=== PATIENT | male | born 1995 | race Caucasian/White ===

== ENCOUNTER 2019-01-10 07:02 | Observation (INO) | payer BC ==
--- NOTE | 2019-01-10 07:14 | EDPHY ---
H & P Stated Complaint: L flank pain Time Seen by Provider: 01/10/19 07:14 - Personal History Current Tetanus/Diphtheria Vaccine: Yes - Medical/Surgical History Hx Asthma: No Hx Chronic Respiratory Disease: No Hx Diabetes: No Hx Cardiac Disease: No Hx Renal Disease: No Hx Cirrhosis: No Hx Alcoholism: No Other PMH: kidney stones - Social History Smoking Status: Never smoked Constitutional: Initial Vital Signs Temperature (C) 36.6 C 01/10/19 07:05 Heart Rate 71 01/10/19 07:05 Respiratory Rate 18 01/10/19 07:05 Blood Pressure 165/91 H 01/10/19 07:05 O2 Sat (%) 96 01/10/19 07:05 O2 Delivery Mode Room Air Allergies/Adverse Reactions: No Known Allergies Allergy (Unverified 01/10/19 07:08) Home Medications: Medication Instructions Recorded NK [No Known Home Meds] 01/10/19 Medical Decision Making - Diagnostics Imaging Results: Imaging Impressions Abdomen CT 01/10/19 08:01 Impression: 1. Acute appendicitis with periappendiceal inflammatory changes and trace peritoneal free fluid. This appendix may be perforated. No abscess. 2. Left-sided nephrolithiasis, largest stone measuring 9 mm in the left renal hilum, without features of obstructive uropathy. Results called to Dr. Feliciano oTbin at 8:30 AM. Imaging: Discussed imaging studies w/ manager call Radiologist, I viewed and interpreted images myself ED Course/Re-evaluation: CHIEF COMPLAINT: Left flank pain HISTORY OF PRESENT ILLNESS: The patient is a 23 y/o male with a history of kidney stones complaining of abdominal pain primarily in his left flank onset this morning. This pain feels like prior episodes of hydronephrosis. Prior to arriving to the ED, he ate a marijuana gummy and is now "feeling much better". He has been unable to urinate since the onset of pain. No fever, headache, body aches, lightheadedness, chest pain, heart palpitations, shortness of breath, cough, urinary or bowel complaints, numbness, paresthesias. REVIEW OF SYSTEMS: A 10 point review of systems was performed and is negative with the exception of the elements mentioned in the history of present illness. PHYSICAL EXAM: HR, BP, O2 Sat, RR. Temp noted General Appearance: Alert, well hydrated, appropriate, and non-toxic appearing. Head: Atraumatic without scalp tenderness or obvious injury Eyes: Pupils equal, round, reactive to light and accommodation, EOMI, no trauma , no injection. Ears: Clear bilaterally, no perforation, normal landmarks Nose: Atraumatic, no rhinorrhea, clear. Throat: There is no erythema or exudates, no lesions, normal tonsils, mucus membranes moist. Neck: Supple, 2+ carotid upstroke, nontender, no lymphadenopathy. Respiratory: No retractions, no distress, no wheezes, and no accessory muscle use. Lungs are clear to auscultation bilaterally. Cardiovascular: Regular rate and rhythm, no murmurs, rubs, or gallops. Bilateral carotid, radial, dorsalis pedis, and posterior tibial pulses intact. Good capillary refill all extremities. Gastrointestinal: Diffuse abdominal tenderness primarily in the RLQ. Abdomen is soft, non-distended, no masses, no rebound, no guarding, no peritoneal signs. Musculoskeletal: Normal active ROM of all extremities, atraumatic. Neurological: Alert, appropriate, and interactive. The patient has normal DTRs and non-focal cranial nerves, motor, sensory, and cerebellar exam. Skin: No rashes, good turgor, no nodules on palpation. Past medical history: Kidney stones Past surgical history: Denies Family history: Denies Social history: Single, lives in [place], employed DIAGNOSTICS/PROCEDURES/CRITICAL CARE TIME: Abdominopelvic CT: Acute appendicitis with periappendiceal inflammatory changes and trace peritoneal free fluid. This appendix may be perforated. No abscess. Left-sided nephrolithiasis, largest stone measuring 9 mm in the left renal hilum , without features of obstructive uropathy. DIFFERENTIAL DIAGNOSIS: The differential diagnosis for the patient's flank pain included but was not limited to musculoskeletal causes, kidney stone, pyelonephritis, shingles, diverticulitis, appendicitis, and aortic aneurysm. MEDICAL DECISION MAKING: The patient is a 23 y/o male with a history of kidney stones presenting with abdominal pain primarily in his left flank onset this morning. This pain feels like prior episodes of hydronephrosis. On exam he has diffuse abdominal tenderness primarily in the RLQ. His pain is more consistent with appendicitis as opposed to a kidney stone. Labs and abdominopelvic CT ordered; 1L IV NS, 30mg IV Toradol, 1mg IV Dilaudid, and 4mg IV Zofran administered. 0830: I spoke with Dr. Kay, radiologist, regarding patient's abdominopelvic CT. The patient has acute appendicitis. He also has three left kidney stones with the largest stone measuring 9mm in the left renal hilum. 1gm IV Cefoxitin and additional 1L IV NS administered. 0840: Reassessed patient and discussed laboratory and imaging findings. I have also discussed plan for surgery and admission, he is comfortable with this plan. 0900: I consulted with Dr. Belle, general surgeon, regarding this patient. He accepts admission of this patient. - Data Points Laboratory Results: Laboratory Results 01/10/19 07:25 01/10/19 07:25 01/10/19 01/10/19 01/10/19 07:25 07:25 07:25 WBC 8.98 10^3/uL 10^3/uL (3.80-9.50) RBC 6.00 10^6/uL 10^6/uL (4.40-6.38) Hgb 16.5 g/dL g/dL (13.7-17.5) Hct 48.6 % % (40.0-51.0) MCV 81.0 fL L fL (81.5-99.8) MCH 27.5 pg L pg (27.9-34.1) MCHC 34.0 g/dL g/dL (32.4-36.7) RDW 12.8 % % (11.5-15.2) Plt Count 221 10^3/uL 10^3/uL (150-400) MPV 11.8 fL H fL (8.7-11.7) Neut % (Auto) 73.9 % % (39.3-74.2) Lymph % (Auto) 15.4 % % (15.0-45.0) [place] % (Auto) 9.7 % % (4.5-13.0) Eos % (Auto) 0.4 % L % (0.6-7.6) Baso % (Auto) 0.4 % % (0.3-1.7) Nucleat RBC Rel Count 0.0 % % (0.0-0.2) Absolute Neuts (auto) 6.63 10^3/uL H 10^3/uL (1.70-6.50) Absolute Lymphs (auto) 1.38 10^3/uL 10^3/uL (1.00-3.00) Absolute Monos (auto) 0.87 10^3/uL H 10^3/uL (0.30-0.80) Absolute Eos (auto) 0.04 10^3/uL 10^3/uL (0.03-0.40) Absolute Basos (auto) 0.04 10^3/uL 10^3/uL (0.02-0.10) Absolute Nucleated RBC 0.00 10^3/uL 10^3/uL (0-0.01) Immature Gran % 0.2 % % (0.0-1.1) Immature Gran # 0.02 10^3/uL 10^3/uL (0.00-0.10) Sodium 138 mEq/L mEq/L (135-145) Potassium 4.2 mEq/L mEq/L (3.5-5.2) Chloride 104 mEq/L mEq/L (97-110) Carbon Dioxide 26 mEq/l mEq/l (22-31) Anion Gap 8 mEq/L mEq/L (6-14) BUN 11 mg/dL mg/dL (7-23) Creatinine 1.0 mg/dL mg/dL (0.7-1.3) Estimated GFR > 60 Glucose 119 mg/dL H mg/dL (70-100) Calcium 9.6 mg/dL mg/dL (8.5-10.4) Total Bilirubin 1.1 mg/dL mg/dL (0.1-1.4) Conjugated Bilirubin 0.3 mg/dL mg/dL (0.0-0.5) Unconjugated Bilirubin 0.8 mg/dL mg/dL (0.0-1.1) AST 25 IU/L IU/L (17-59) ALT 46 IU/L IU/L (21-72) Alkaline Phosphatase 60 IU/L IU/L (38-126) Total Protein 7.2 g/dL g/dL (6.3-8.2) Albumin 4.5 g/dL g/dL (3.5-5.0) Lipase 57 IU/L IU/L (23-300) Medications Given: Discontinued Medications Sodium Chloride (Ns) 1,000 mls @ 0 mls/hr IV ONCE ONE PRN Reason: Wide Open Stop: 01/10/19 07:33 Last Admin: 01/10/19 07:38 Dose: 1,000 mls Ketorolac Tromethamine (Toradol) 30 mg IVP EDNOW ONE Stop: 01/10/19 07:33 Last Admin: 01/10/19 07:39 Dose: 30 mg Departure - Departure Disposition: To OP Cath/Surgery Clinical Impression: Acute appendicitis Qualifiers: Acute appendicitis type: unspecified acute appendicitis type Qualified Code(s) : K35.80 - Unspecified acute appendicitis Condition: Fair Report Scribed for: Feliciano Tobin Report Scribed by: Lisa Villa Date of Report: 01/10/19 Time of Report: 07:14
[2019-01-10] MEDS ORDERED: NS 1,000 ML IV ONE ×2 (07:32→08:00)
[2019-01-10] MEDS ORDERED: KETOROLAC 30 MG/1 ML SDV IVP ONE (07:32)
[2019-01-10 07:39] LABS: PLATELET COUNT 221 10^3/uL (150-400)
[2019-01-10] MEDS ORDERED: ONDANSETRON 4 MG/2 ML VIAL IVP ONE (08:00)
[2019-01-10] MEDS ORDERED: HYDROmorphONE/DILAUDID 2 MG/ML INJ IVP ONE (08:00)
[2019-01-10] MEDS ORDERED: IOPAMIDOL (ISOVUE-300) 100 ML BTL ONE (08:10)
[2019-01-10] MEDS ORDERED: cefOXitin SODIUM 1 GM in NS 50 ML IV ONE (08:34)
[2019-01-10] MEDS ORDERED: BUPIVACAINE 0.25% 30 ML SDV ONE (10:23)
--- NOTE | 2019-01-10 11:12 | PDGENHP ---
History and Physical - Chief Complaint Abd pain - History of Present Illness 23 y/o male with abd pain starting last night and worse this morning. He awoke at 4:00 with the pain and took a 10 mg THC edible and drank some water. He did not eat since last night. He denies emesis, diarrhea, dysuria. History Information - Allergies/Home Medication List Allergies/Adverse Reactions: No Known Allergies Allergy (Unverified 01/10/19 07:08) Home Medications: NK [No Known Home Meds] 01/10/19 [Last Taken Unknown] I have personally reviewed and updated: family history, medical history, social history, surgical history - Surgical History Additional surgical history: lithotripsy/stent for kidney stones 2012 - Social History Smoking Status: Never smoked Alcohol Use: Occasionally Drug Use: Marijuana Additional social history: graphic design student Review of Systems Review of Systems: Constitutional: Reports: no symptoms Gastrointestinal: Reports: abdominal pain, nausea Genitourinary: Reports: no symptoms Physical Exam Physical Exam: Temp Pulse Resp BP Pulse Ox 37 C 75 16 121/78 H 96 01/10/19 10:00 01/10/19 10:00 01/10/19 10:00 01/10/19 10:00 01/10/19 10:00 Constitutional: no apparent distress Eyes: anicteric sclera Cardiovascular: regular rate and rhythym Respiratory: no respiratory distress, no rales or rhonchi, clear to auscultation Gastrointestinal: tenderness (RLQ/neg Rovsing's/hypoactive bowel sounds) Skin: warm Musculoskeletal: full muscle strength Neurologic: AAOx3 Lab Data & Imaging Review 01/10/19 07:25 01/10/19 07:25 WBC 8.98 10^3/uL (3.80-9.50) 01/10/19 07:25 RBC 6.00 10^6/uL (4.40-6.38) 01/10/19 07:25 Hgb 16.5 g/dL (13.7-17.5) 01/10/19 07:25 Hct 48.6 % (40.0-51.0) 01/10/19 07:25 MCV 81.0 fL (81.5-99.8) L 01/10/19 07:25 MCH 27.5 pg (27.9-34.1) L 01/10/19 07:25 MCHC 34.0 g/dL (32.4-36.7) 01/10/19 07:25 RDW 12.8 % (11.5-15.2) 01/10/19 07:25 Plt Count 221 10^3/uL (150-400) 01/10/19 07:25 MPV 11.8 fL (8.7-11.7) H 01/10/19 07:25 Neut % (Auto) 73.9 % (39.3-74.2) 01/10/19 07:25 Lymph % (Auto) 15.4 % (15.0-45.0) 01/10/19 07:25 [place] % (Auto) 9.7 % (4.5-13.0) 01/10/19 07:25 Eos % (Auto) 0.4 % (0.6-7.6) L 01/10/19 07:25 Baso % (Auto) 0.4 % (0.3-1.7) 01/10/19 07:25 Nucleat RBC Rel Count 0.0 % (0.0-0.2) 01/10/19 07:25 Absolute Neuts (auto) 6.63 10^3/uL (1.70-6.50) H 01/10/19 07:25 Absolute Lymphs (auto) 1.38 10^3/uL (1.00-3.00) 01/10/19 07:25 Absolute Monos (auto) 0.87 10^3/uL (0.30-0.80) H 01/10/19 07:25 Absolute Eos (auto) 0.04 10^3/uL (0.03-0.40) 01/10/19 07:25 Absolute Basos (auto) 0.04 10^3/uL (0.02-0.10) 01/10/19 07:25 Absolute Nucleated RBC 0.00 10^3/uL (0-0.01) 01/10/19 07:25 Immature Gran % 0.2 % (0.0-1.1) 01/10/19 07:25 Immature Gran # 0.02 10^3/uL (0.00-0.10) 01/10/19 07:25 Sodium 138 mEq/L (135-145) 01/10/19 07:25 Potassium 4.2 mEq/L (3.5-5.2) 01/10/19 07:25 Chloride 104 mEq/L (97-110) 01/10/19 07:25 Carbon Dioxide 26 mEq/l (22-31) 01/10/19 07:25 Anion Gap 8 mEq/L (6-14) 01/10/19 07:25 BUN 11 mg/dL (7-23) 01/10/19 07:25 Creatinine 1.0 mg/dL (0.7-1.3) 01/10/19 07:25 Estimated GFR > 60 01/10/19 07:25 Glucose 119 mg/dL (70-100) H 01/10/19 07:25 Calcium 9.6 mg/dL (8.5-10.4) 01/10/19 07:25 Total Bilirubin 1.1 mg/dL (0.1-1.4) 01/10/19 07:25 Conjugated Bilirubin 0.3 mg/dL (0.0-0.5) 01/10/19 07:25 Unconjugated Bilirubin 0.8 mg/dL (0.0-1.1) 01/10/19 07:25 AST 25 IU/L (17-59) 01/10/19 07:25 ALT 46 IU/L (21-72) 01/10/19 07:25 Alkaline Phosphatase 60 IU/L (38-126) 01/10/19 07:25 Total Protein 7.2 g/dL (6.3-8.2) 01/10/19 07:25 Albumin 4.5 g/dL (3.5-5.0) 01/10/19 07:25 Lipase 57 IU/L (23-300) 01/10/19 07:25 Assessment & Plan Assessment: Acute appendicitis (Acute) Plan: to OR for lap appendectomy. we discussed surgery, risks and expected recovery. we discussed the alternative of antibiotics only which I did not recommend. Informed consent was obtained.
[2019-01-10] MEDS ORDERED: LR 1,000 ML IV ONE (11:52)
[2019-01-10] MEDS ORDERED: MIDAZOLAM 2 MG/2 ML VIAL IVP ONE (12:21)
--- NOTE | 2019-01-10 12:22 | PDANEPAE ---
ANE Past Medical History - Cardiovascular History Hx Hypertension: No Hx Arrhythmias: No Hx Chest Pain: No Hx Coronary Artery / Peripheral Vascular Disease: No Hx CHF / Valvular Disease: No Hx Palpitations: No - Pulmonary History Hx COPD: No Hx Asthma/Reactive Airway Disease: No Hx Recent Upper Respiratory Infection: No Hx Oxygen in Use at Home: No Hx Sleep Apnea: Yes - Neurologic History Hx Cerebrovascular Accident: No Hx Seizures: No Hx Dementia: No - Endocrine History Hx Diabetes: No - Renal History Hx Renal Disorders: No - Liver History Hx Hepatic Disorders: No - Neurological & Psychiatric Hx Hx Neurological and Psychiatric Disorders: Yes Neurological / Psychiatric History Comment: depression, not treated - Cancer History Hx Cancer: No - Congenital Disorder History Hx Congenital Disorders: No - GI History Hx Gastrointestinal Disorders: No - Surgical History Prior Surgeries: Tonsillectomy. cystoscopy, urteroscopy, stent, laser for kidney stones ANE Review of Systems Review of Systems: - Exercise capacity METS (RN): 5 METS ANE Patient History - Allergies Allergies/Adverse Reactions: No Known Allergies Allergy (Unverified 01/10/19 07:08) - Home Medications Home Medications: NK [No Known Home Meds] 01/10/19 [Last Taken Unknown] - NPO status NPO Since - Liquids (Date): 01/10/19 NPO Since - Liquids (Time): 07:00 NPO Since - Solids (Date): 01/09/19 NPO Since - Solids (Time): 20:00 - Smoking Hx Smoking Status: Never smoked - Alcohol Use Alcohol Use: Occasionally ANE Labs/Vital Signs - Labs Result Diagrams: 01/10/19 07:25 01/10/19 07:25 - Vital Signs Blood Pressure: 111/76 Heart Rate: 95 Respiratory Rate: 16 O2 Sat (%): 97 Height: 190.5 cm Weight: 130.181 kg ANE Physical Exam - Airway Neck exam: FROM Mallampati Score: Class 3 Mouth exam: normal dental/mouth exam - Pulmonary Pulmonary: no respiratory distress - Cardiovascular Cardiovascular: regular rate and rhythym - ASA Status ASA Status: III, E ANE Anesthesia Plan Anesthesia Plan: general endotracheal anesthesia
[2019-01-10] MEDS ORDERED: MIDAZOLAM 2 MG/2 ML VIAL ONE (12:25)
[2019-01-10] MEDS ORDERED: fentaNYL 250 MCG/5 ML INJ ONE (12:31)
[2019-01-10] MEDS ORDERED: DEXAMETHASONE 4 MG/ML VIAL ONE (12:32)
[2019-01-10] MEDS ORDERED: PROPOFOL 200 MG/20 ML VIAL ONE (12:32)
[2019-01-10] MEDS ORDERED: ROCURONIUM 50 MG/5 ML VIAL ONE (12:32)
[2019-01-10] MEDS ORDERED: HYDROmorphONE/DILAUDID 1 MG/ML INJ IVP PRN ×2 (12:51→13:33)
[2019-01-10] MEDS ORDERED: fentaNYL 100 MCG/2 ML INJ IVP PRN (12:51)
[2019-01-10] MEDS ORDERED: NALOXONE HCL 0.4 MG/ML INJ IVP PRN ×2 (12:51→13:34)
[2019-01-10] MEDS ORDERED: ONDANSETRON 4 MG/2 ML VIAL IVP PRN (12:51)
[2019-01-10] MEDS ORDERED: ALBUTEROL 3 ML DEYVIAL IH PRN (12:51)
[2019-01-10] MEDS ORDERED: ONDANSETRON 4 MG/2 ML VIAL ONE (13:12)
[2019-01-10] MEDS ORDERED: GLYCOPYRROLATE 0.2 MG/1 ML VIAL ONE ×2 (13:12)
[2019-01-10] MEDS ORDERED: NEOSTIGMINE METHYLSULFATE 5 MG/5 ML SYR ONE (13:12)
[2019-01-10] MEDS ORDERED: METOCLOPRAMIDE 10 MG/2 ML VIAL IVP PRN (13:33)
[2019-01-10] MEDS ORDERED: MAGNESIUM HYDROXIDE 30 ML UDCUP PO PRN (13:33)
--- NOTE | 2019-01-10 13:33 | POSTOPPROG ---
Post Op Note Date of Operation: 01/10/19 Surgeon: Fermin Belle (, FACS) Anesthesiologist: Emanuel Briceno MD Anesthesia: GET(General Endotracheal) Pre-op Diagnosis: appendicitis Post-op Diagnosis: same Procedure: lap appendectomy Findings: acute on chronic appendicitis Inf/Abcess present in the surg proc area at time of surgery?: Yes Depth: Organ Space EBL: Minimal (15 ml) Bowel Protocol: N/A Clean Closure Performed: N/A
--- NOTE | 2019-01-10 13:35 | POSTANESTH ---
Post Anesthetic Evaluation Cardiovascular Status: Similar to Pre-Op Cond Respiratory Status: Similar to Pre-op Cond. Level of Consciousness/Mental Status: Mildly Sleepy, Arousable Pain Control: Adequate, Prn Tx Ordered Nausea/Vomiting Control: Adequate, Prn Tx Ordered Complications Possibly Related to Anesthesia: None Noted
[2019-01-10] MEDS ORDERED: fentaNYL 100 MCG/2 ML INJ ONE (14:07)
[2019-01-10] MEDS: cefOXitin SODIUM 2 GM in NS 100 ML IV SCH ×2 (16:27→21:35)
[2019-01-10] MEDS: ENOXAPARIN 40 MG/0.4 ML SYR SC SCH (16:44)
[2019-01-10] MEDS: HYDROCODONE/APAP 5/325 TAB PO PRN (18:30)
[2019-01-10] MEDS: IBUPROFEN 600 MG TAB PO SCH ×2 (20:12→21:36)
[2019-01-11] MEDS: cefOXitin SODIUM 2 GM in NS 100 ML IV SCH (03:57)
[2019-01-11] MEDS: IBUPROFEN 600 MG TAB PO SCH (05:13)
[2019-01-11] MEDS: HYDROCODONE/APAP 5/325 TAB PO PRN (05:13)
[2019-01-11 07:52] VITALS: BP 142/61
[2019-01-11] MEDS: ENOXAPARIN 40 MG/0.4 ML SYR SC SCH (08:02)
--- NOTE | 2019-01-14 09:30 | PDDCSUM ---
Discharge Summary Discharge Summary: Dictated # [id number] S MD Barbra, FACS
--- NOTE | 2019-01-14 09:44 | GOP ---
[f rep st] OPERATIVE REPORT DATE OF OPERATION: 01/10/2019 SURGEON: Fermin Belle MD, FACS ANESTHESIA: General endotracheal. ANESTHESIOLOGIST: Emanuel Briceno MD. PREOPERATIVE DIAGNOSIS: Acute appendicitis. POSTOPERATIVE DIAGNOSIS: Acute on chronic appendicitis. PROCEDURE PERFORMED: Laparoscopic appendectomy. FINDINGS: Acute appendicitis with evidence of prior attacks, significant scarring between the appendix and the abdominal wall/peritoneum. Specimen submitted for permanent section. No evidence of priyank perforation. Mild suppurative change around the appendix. ESTIMATED BLOOD LOSS: 25 mL. DESCRIPTION OF PROCEDURE: After informed consent was obtained, the patient was brought to the operating room and placed under general anesthesia. The abdomen was prepped and draped in the usual fashion. Before proceeding, a time-out identification of the patient was performed. 0.25% Marcaine was used to infiltrate all incisions. A longitudinal incision was made through the base of the umbilicus and carried through the skin and subcutaneous tissues. Ventral traction was applied to the abdominal wall and a Veress needle was introduced into the peritoneal cavity. Position was confirmed by saline infusion. A pneumoperitoneum was established with CO2 gas to a pressure of 15 mmHg. The Veress needle was withdrawn and replaced with a 5 mm bladeless trocar. A 30-degree 5 mm scope was introduced and the peritoneal cavity was visualized. The appendix was stuck to the abdominal wall at the pelvic brim and had suppurative change. Under direct visualization, a 5 mm port was placed in the suprapubic position and the left lower quadrant 12 mm port was established both under direct visualization. This allowed introduction of atraumatic grasping forceps and the Harmonic Scalpel, which was used to dissect the appendix away from the pelvic sidewall. This proved somewhat difficult and required incising the peritoneum and removing a portion of the peritoneum with the appendix. This appeared to represent a chronic inflammatory process, in addition to the acute process associated with the suppurative change. The mesoappendix was taken down with the Harmonic Scalpel. The appendix was from the cecum with a single firing of the NAGA stapler and the specimen was retrieved through the left lower quadrant port site using an Endopouch. The operative field was irrigated. Hemostasis appeared secure. The left lower quadrant port site was closed with a transfascial closure needle and 0 Vicryl suture. The pneumoperitoneum was evacuated. The incisions were closed with layers of 4-0 Monocryl suture followed by Dermabond. The patient was extubated and brought to the recovery room in satisfactory condition. Needle, sponge, and instrument counts were correct. COMPLICATIONS: None. /[id number]/MODL MTDD
--- NOTE | 2019-01-14 09:59 | GDS ---
[f rep st] DISCHARGE SUMMARY DISCHARGE MEDICATIONS: Hydrocodone 1 p.o. q.4 hours p.r.n. pain #14, ibuprofen 600 mg p.o. q.6 hours p.r.n. pain #30, and Senokot S 1 p.o. twice daily #30. DISCHARGE DIAGNOSIS: Acute on chronic appendicitis. PROCEDURE PERFORMED: 01/10/2019, laparoscopic appendectomy. HOSPITAL COURSE: For details of admission history and physical, please see dictated summary. Briefl y, the patient is a 23-year-old male who presents with right lower quadrant tenderness and a prodrome of abdominal pain, nausea, and anorexia. The patient also had a prior history of intermittent abdom inal pains for the past 6 months. At the time of surgery, he was found to have acute suppurative barbara endicitis with evidence of chronic appendicitis and scarring between the appendix and the peritoneal surface. Following surgery, patient received 3 additional doses of antibiotics (cefoxitin 2 g IV pig gyback). He had received this preoperatively as well. He remained afebrile. He was advanced in his diet. On the morning after surgery, he was ambulatory. Incisions healing well without sign of infe ction. He was able to void. The patient was instructed in wound care, activity, and diet and will f ollow up in my office in the upcoming week. CONDITION AT TIME OF DISCHARGE: Improved. Copy requested to: Dr. Dedrick Dougherty #: [id number]
== END 2019-01-11 08:37 | disposition home or self-care (01) ==
LOC: F1N 14:43
PROVIDERS: ADMIT Surgery; ATTEND Surgery
PROC: 0DTJ4ZZ Resection of Appendix, Percutaneous Endoscopic Approach (ICD-10-PCS; principal; 2019-01-10 13:00)
DX: K35.80 Unspecified acute appendicitis (principal); K36 Other appendicitis; N20.0 Calculus of kidney; E86.9 Volume depletion, unspecified
CPT/HCPCS: 44970; 74177; 96361; 96372; 96374; 96375; 96376; 99285; G0378; J0694; J1100; J1170; J1650; J1885; J2250; J2405; J2704; J2710; J3010; Q9967

== ENCOUNTER 2019-04-02 19:06 | Emergency (ER) | payer BC | END 2019-04-02 22:20 | disposition home or self-care (01) ==